=== PATIENT | female | born 1960 | race Caucasian/White ===

== ENCOUNTER → 2017-07-10 | Outpatient (CLI) | payer OTHER, SELFPAY ==
[~2017-07-10] MED LIST: (None)20 M1 PO; ALBU3IS INH; ALBU90OI6 INH; ALBU90OI61; ALBU90OI61 INH; AZIT500 PO; BUDE6HFA INH; CARV6.25 PO; CEFD300 PO; COLE625 PO; FLUSAL5005 IH; FOLI1 PO; FURO40 PO; GLIP5 PO; LOSA25 PO; METF500 PO; METPHE20CR; MONT10T PO; PRED10; PRED10 PO; SPIRIVA RESPIMAT4 G1; TIOT18 IH; TUDORZA PRESS400 MCG; Zithromax Tri-500 MG
[2017-07-10 10:43] LABS: BASOPHILS ABSOLUTE AUTO 0.07 K/mm3 (0.00-0.23); BASOPHILS PERCENT AUTO 1 % (0-2); EOSINOPHILS ABSOLUTE AUTO 0.24 K/mm3 (0.00-0.68); EOSINOPHILS PERCENT AUTO 3 % (0-6); Hemoglobin 12.6 g/dL (11.5-16.0); IMMATURE GRAN ABSOLUTE AUTO 0.05 K/mm3 (0.00-0.10); IMMATURE GRAN PERCENT AUTO 1 % (0-1); LYMPHOCYTES ABSOLUTE AUTO 1.34 K/mm3 (0.84-5.20); LYMPHOCYTES PERCENT AUTO 14 % (21-46); MONOCYTES PERCENT AUTO 6 % (4-13); Mean Corpuscular HGB 30.8 pg (26.0-34.0); Mean Corpuscular HGB Conc 34.1 g/dL (31.5-36.5); Mean Corpuscular Volume 91 fL (80-100); Mean Platelet Volume 10.5 fL (9.1-12.4); NEUTROPHILS ABSOLUTE AUTO 7.19 K/mm3 (1.96-9.15); NEUTROPHILS PERCENT AUTO 76 % (41-73); Platelet Count 219 K/mm3 (150-400); RDW Coefficient Variation 14.9 % (11.7-14.2); RDW Standard Deviation 48.7 fL (35.1-46.3); Red Blood Cell Count 4.09 M/mm3 (3.80-5.20); White Blood Cell Count 9.49 K/mm3 (4.00-11.30)
[2017-07-10 10:54] LABS: Anion Gap 11 mmol/L (6-16); Blood Urea Nitrogen 9 mg/dL (8-24); CO2, Blood 27 mmol/L (21-32); Calcium, Blood 9.6 mg/dL (8.5-10.1); Chloride, Blood 101 mmol/L (98-108); Creatinine, Blood 0.75 mg/dL (0.40-1.00); Glomerular Filtration Rate >60 (60-); Glucose, Blood 190 mg/dL (70-99); Potassium, Blood 3.9 mmol/L (3.5-5.5); Sodium, Blood 139 mmol/L (136-145)
== END | disposition home or self-care (01) ==
LOC: LAB EV 10:39
PROVIDERS: Physician Assistant Surgical
DX: R06.02 Shortness of breath (principal)
CPT/HCPCS: 80048; 83880; 85025

== ENCOUNTER 2017-11-07 20:20 | Inpatient (IN) | payer OTHER, SELFPAY ==
[~2017-11-07] VITALS: Ht 162.6 cm; Wt 102.5 kg
[~2017-11-07 20:20] MED LIST changes: -(None)20 M1 PO; -AZIT500 PO; -BUDE6HFA INH; -CARV6.25 PO; -FURO40 PO; -SPIRIVA RESPIMAT4 G1
[2017-11-07] MEDS ORDERED: BUDE6HFA INH (21:17)
[2017-11-07 21:41] LABS: BASOPHILS ABSOLUTE AUTO 0.04 K/mm3 (0.00-0.23); BASOPHILS PERCENT AUTO 0 % (0-2); EOSINOPHILS PERCENT AUTO 3 % (0-6); Hematocrit 35.2 % (33.0-51.0); IMMATURE GRAN ABSOLUTE AUTO 0.05 K/mm3 (0.00-0.10); IMMATURE GRAN PERCENT AUTO 0 % (0-1); LYMPHOCYTES ABSOLUTE AUTO 1.36 K/mm3 (0.84-5.20); LYMPHOCYTES PERCENT AUTO 12 % (21-46); MONOCYTES ABSOLUTE AUTO 0.87 K/mm3 (0.16-1.47); MONOCYTES PERCENT AUTO 8 % (4-13); Mean Corpuscular HGB 30.8 pg (26.0-34.0); Mean Corpuscular HGB Conc 34.1 g/dL (31.5-36.5); Mean Corpuscular Volume 91 fL (80-100); Mean Platelet Volume 10.4 fL (9.1-12.4); NEUTROPHILS ABSOLUTE AUTO 8.89 K/mm3 (1.96-9.15); NEUTROPHILS PERCENT AUTO 77 % (41-73); Platelet Count 224 K/mm3 (150-400); RDW Coefficient Variation 14.5 % (11.7-14.2); RDW Standard Deviation 47.7 fL (35.1-46.3); Red Blood Cell Count 3.89 M/mm3 (3.80-5.20); White Blood Cell Count 11.51 K/mm3 (4.00-11.30)
[2017-11-07 22:02] LABS: Alanine Aminotransfer (ALT/SGP 33 U/L (12-78); Albumin, Blood 3.4 g/dL (3.4-5.0); Albumin/Globulin Ratio 0.9 (0.8-1.8); Alk Phos 93 U/L (50-136); Anion Gap 9 mmol/L (6-16); Aspartate Aminotrans (AST/SGOT 14 U/L (12-37); Bilirubin, Total 0.3 mg/dL (0.1-1.0); Blood Urea Nitrogen 14 mg/dL (8-24); Bun/Creatinine Ratio 17.2 (12.0-20.0); CO2, Blood 26 mmol/L (21-32); Calcium, Blood 8.8 mg/dL (8.5-10.1); Chloride, Blood 105 mmol/L (98-108); Creatinine, Blood 0.82 mg/dL (0.40-1.00); Globulin, Blood 3.6 g/dL (2.2-4.0); Glomerular Filtration Rate >60 (60-); Glucose, Blood 190 mg/dL (70-99); Potassium, Blood 3.8 mmol/L (3.5-5.5); Sodium, Blood 140 mmol/L (136-145)
[2017-11-08] MEDS ORDERED: SPIRIVA RESPIMAT4 G1 (00:07)
[2017-11-08] MEDS ORDERED: FURO40 PO (00:08)
[2017-11-08 04:28] LABS: Hematocrit 35.5 % (33.0-51.0); Hemoglobin 11.9 g/dL (11.5-16.0); Mean Corpuscular HGB Conc 33.5 g/dL (31.5-36.5); Mean Corpuscular Volume 89 fL (80-100); Mean Platelet Volume 10.7 fL (9.1-12.4); Platelet Count 220 K/mm3 (150-400); RDW Coefficient Variation 14.3 % (11.7-14.2); RDW Standard Deviation 46.7 fL (35.1-46.3); Red Blood Cell Count 3.97 M/mm3 (3.80-5.20); White Blood Cell Count 11.46 K/mm3 (4.00-11.30)
[2017-11-08 04:46] LABS: Alanine Aminotransfer (ALT/SGP 34 U/L (12-78); Albumin, Blood 3.5 g/dL (3.4-5.0); Albumin/Globulin Ratio 0.9 (0.8-1.8); Alk Phos 98 U/L (50-136); Anion Gap 10 mmol/L (6-16); Aspartate Aminotrans (AST/SGOT 20 U/L (12-37); Bilirubin, Total 0.3 mg/dL (0.1-1.0); Blood Urea Nitrogen 15 mg/dL (8-24); Bun/Creatinine Ratio 23.5 (12.0-20.0); CO2, Blood 25 mmol/L (21-32); Calcium, Blood 8.7 mg/dL (8.5-10.1); Chloride, Blood 102 mmol/L (98-108); Creatinine, Blood 0.64 mg/dL (0.40-1.00); Glomerular Filtration Rate >60 (60-); Glucose, Blood 299 mg/dL (70-99); Potassium, Blood 4.4 mmol/L (3.5-5.5); Sodium, Blood 137 mmol/L (136-145); Total Protein, Blood 7.5 g/dL (6.4-8.2)
[2017-11-09] MEDS ORDERED: AZIT500 PO (12:53)
[2017-11-09] MEDS ORDERED: CEFD300 PO (12:54)
[2017-11-09] MEDS ORDERED: (None)20 M1 PO (12:55)
== END 2017-11-09 14:34 | disposition home or self-care (01) | DRG 189 ==
LOC: ER 20:20 → MEDS 22:28 → ENPENDDIS 11-09 12:00 → MEDS 11-09 14:34
PROVIDERS: Emergency Medicine; Internal Medicine
DX: J96.11 Chronic respiratory failure with hypoxia (principal); J18.9 Pneumonia, unspecified organism; K50.90 Crohn's disease, unspecified, without complications; I50.30 Unspecified diastolic (congestive) heart failure; I11.0 Hypertensive heart disease with heart failure; Z79.84 Long term (current) use of oral hypoglycemic drugs; Z87.891 Personal history of nicotine dependence; E78.5 Hyperlipidemia, unspecified; G47.33 Obstructive sleep apnea (adult) (pediatric); E11.65 Type 2 diabetes mellitus with hyperglycemia; T38.0X5A Adverse effect of glucocorticoids and synthetic analogues, initial encounter; Y92.239 Unspecified place in hospital as the place of occurrence of the external cause; J43.9 Emphysema, unspecified
CPT/HCPCS: 36415; 71046; 80053; 82947; 83605; 85025; 85027; 87070; 87077; 87205; 93005; 93010; 94640; 96365; 96367; 96375; 99285; J0456; J0696; J1100; J1650; J1815; J1956; J2930; J7030; J7050

== ENCOUNTER → 2021-07-05 | Outpatient (CLI) | payer MEDICARE, OTHER ==
[~2021-07-05] MED LIST changes: +(None)20 M1 PO; +AZIT500 PO; +BUDE6HFA INH; +CARV6.25 PO; +FURO40 PO; +SPIRIVA RESPIMAT4 G1
== END | disposition home or self-care (01) ==
LOC: LAB SHORT 10:20
PROVIDERS: Nurse Practitioner Family
DX: Z01.419 Encounter for gynecological examination (general) (routine) without abnormal findings (principal); L02.214 Cutaneous abscess of groin
CPT/HCPCS: 87070; 87075; 87077; 87147; 87186; 87205

== ENCOUNTER → 2022-04-27 | Outpatient (CLI) | payer MEDICARE, OTHER | END | disposition home or self-care (01) | LOC: LAB SHORT 13:30 | DX: L73.2 Hidradenitis suppurativa (principal) | CPT/HCPCS: 87070; 87075; 87077; 87186; 87205 ==

== ENCOUNTER 2024-01-29 14:56 | Inpatient (IN) | payer MEDICARE, OTHER ==
[~2024-01-29] VITALS: Ht 162.6 cm; Wt 89.4 kg
[~2024-01-29 14:56] MED LIST changes: -ALBU3IS INH; -BUDE6HFA INH; +GLIP10 PO; -GLIP5 PO; -METF500 PO; +METF500C PO; -SPIRIVA RESPIMAT4 G1
[2024-01-29 15:34] LABS: BASOPHILS ABSOLUTE AUTO 0.07 K/mm3 (0.00-0.23); BASOPHILS PERCENT AUTO 1 % (0-2); EOSINOPHILS ABSOLUTE AUTO 0.33 K/mm3 (0.00-0.68); EOSINOPHILS PERCENT AUTO 3 % (0-6); Hematocrit 37.2 % (33.0-51.0); Hemoglobin 12.5 g/dL (11.5-16.0); IMMATURE GRAN ABSOLUTE AUTO 0.05 K/mm3 (0.00-0.10); IMMATURE GRAN PERCENT AUTO 1 % (0-1); LYMPHOCYTES ABSOLUTE AUTO 1.43 K/mm3 (0.84-5.20); LYMPHOCYTES PERCENT AUTO 13 % (21-46); MONOCYTES ABSOLUTE AUTO 0.67 K/mm3 (0.16-1.47); MONOCYTES PERCENT AUTO 6 % (4-13); Mean Corpuscular HGB 29.1 pg (26.0-34.0); Mean Corpuscular HGB Conc 33.6 g/dL (31.5-36.5); Mean Corpuscular Volume 87 fL (80-100); Mean Platelet Volume 9.9 fL (9.1-12.4); NEUTROPHILS ABSOLUTE AUTO 8.29 K/mm3 (1.96-9.15); NEUTROPHILS PERCENT AUTO 77 % (41-73); Platelet Count 235 K/mm3 (150-400); Red Blood Cell Count 4.29 M/mm3 (3.80-5.20); White Blood Cell Count 10.84 K/mm3 (4.00-11.30)
[2024-01-29 15:56] LABS: Albumin, Blood 3.6 g/dL (3.4-5.0); Albumin/Globulin Ratio 1.1 (0.8-1.8); Bilirubin, Total 0.3 mg/dL (0.1-1.0); Bun/Creatinine Ratio 16.7 (12.0-20.0); Calcium, Blood 9.3 mg/dL (8.5-10.1); Creatinine, Blood 0.6 mg/dL (0.40-1.00); Globulin, Blood 3.4 g/dL (2.2-4.0); Potassium, Blood 4.1 mmol/L (3.5-5.5)
[2024-01-29] MEDS ORDERED: Ipratropium/Albuterol SulF 2.5-0.5MG/3 ML Amp INH ONE (16:45)
[2024-01-29] MEDS ORDERED: Albuterol 2.5 MG/3 ML VIAL INH SCH (16:45)
[2024-01-29] MEDS ORDERED: PredniSONE 20 MG Tab PO ONE (16:45)
[2024-01-29] MEDS ORDERED: CefTRIAXone Sodium 1,000 MG in NS 100 ML IV ONE (18:30)
[2024-01-29] MEDS ORDERED: Azithromycin 250 MG Tab PO ONE (18:30)
[2024-01-29] MEDS ORDERED: FLU VACC TS2024-25(6MOS UP)/PF 45 MCG/0.5 ML SYRINGE IM SCH (19:55)
[2024-01-29] MEDS ORDERED: Albuterol 2.5 MG/3 ML VIAL INH PRN (20:00)
[2024-01-29] MEDS ORDERED: NS 1,000 ML IV SCH (20:00)
[2024-01-29] MEDS ORDERED: Acetaminophen 325 MG TABLET PO PRN (20:00)
[2024-01-29] MEDS ORDERED: Ondansetron HCl 2 MG / ML 2ML Vial IV PRN (20:00)
[2024-01-29] MEDS ORDERED: Ipratropium/Albuterol SulF 2.5-0.5MG/3 ML Amp INH SCH (20:00)
[2024-01-29] MEDS ORDERED: Lactobacil 2-S.Thermo-Bifido 1 1 Cap PO SCH (21:00)
[2024-01-29] MEDS ORDERED: Montelukast Sodium 10 MG Tab PO SCH (21:00)
[2024-01-29] MEDS ORDERED: ATOR10 PO (21:02)
[2024-01-29 21:29] VITALS: BP 170/80
[2024-01-29] MEDS ORDERED: ROFLUMILAST250 MCG PO (21:40)
[2024-01-29] MEDS ORDERED: Hydroxyzine HCl50 MG PO (21:41)
[2024-01-29] MEDS ORDERED: BUPR150ER PO (21:42)
[2024-01-29] MEDS ORDERED: Carvedilol 6.25 MG Tab PO ONE (22:20)
[2024-01-29] MEDS ORDERED: HydrALAZINE HCl 25 MG Tab PO PRN (22:20)
--- NOTE | 2024-01-29 22:22 | NUR ---
ADMIT NOTE HANDOFF RECEIVED FROM CAMILLE TURNER. PT ARRIVED TO FLOOR VIA GURNEY. PT ORIENTED TO UNIT. CALL BUTTON WITHIN REACH. IV FLUIDS STARTED ORDERED. CALL PLACED TO HOSPITALIST AT PT'S REQUEST FOR HER NIGHT MEDS SHE DIDN'T GET TONIGHT. HTN MED APPROVED, AWAITING PHARMACY. PRN HTN MED ALSO ENTERED INTO EMAR WITH PARAMETERS.
[2024-01-30] MEDS ORDERED: MethylPREDNISolone Sod Succ 125 MG Vial IV SCH
--- NOTE | 2024-01-30 04:07 | NUR ---
SHIFT SUMMARY ADMITTED THIS SHIFT FOR COPD EXACERBATION. FULL CODE. PLAN IS FOR STEROIDS, ANTIB RX, IV FLUIDS. SHE IS A&O X4, STANDBY ASSIST- BRP. AC CBG'S - LOW SS. 4 LPM O2 @ BASELINE. NS INFUSING ORDERED. ADA DIET. RT TX'S GIVEN THIS SHIFT.
[2024-01-30 05:25] LABS: BASOPHILS ABSOLUTE AUTO 0.03 K/mm3 (0.00-0.23); BASOPHILS PERCENT AUTO 0 % (0-2); EOSINOPHILS ABSOLUTE AUTO 0.02 K/mm3 (0.00-0.68); EOSINOPHILS PERCENT AUTO 0 % (0-6); Hematocrit 35.9 % (33.0-51.0); Hemoglobin 12.1 g/dL (11.5-16.0); IMMATURE GRAN ABSOLUTE AUTO 0.05 K/mm3 (0.00-0.10); IMMATURE GRAN PERCENT AUTO 0 % (0-1); LYMPHOCYTES ABSOLUTE AUTO 0.64 K/mm3 (0.84-5.20); LYMPHOCYTES PERCENT AUTO 6 % (21-46); MONOCYTES ABSOLUTE AUTO 0.13 K/mm3 (0.16-1.47); MONOCYTES PERCENT AUTO 1 % (4-13); Mean Corpuscular HGB 28.7 pg (26.0-34.0); Mean Corpuscular HGB Conc 33.7 g/dL (31.5-36.5); Mean Corpuscular Volume 85 fL (80-100); Mean Platelet Volume 10.2 fL (9.1-12.4); NEUTROPHILS ABSOLUTE AUTO 10.52 K/mm3 (1.96-9.15); NEUTROPHILS PERCENT AUTO 92 % (41-73); Platelet Count 235 K/mm3 (150-400); RDW Coefficient Variation 14.6 % (11.7-14.2); RDW Standard Deviation 44.8 fL (35.1-46.3); Red Blood Cell Count 4.21 M/mm3 (3.80-5.20); White Blood Cell Count 11.39 K/mm3 (4.00-11.30)
[2024-01-30 05:57] LABS: Albumin, Blood 3.5 g/dL (3.4-5.0); Bilirubin, Total 0.4 mg/dL (0.1-1.0); Bun/Creatinine Ratio 21.8 (12.0-20.0); Calcium, Blood 8.8 mg/dL (8.5-10.1); Creatinine, Blood 0.64 mg/dL (0.40-1.00); Globulin, Blood 3.4 g/dL (2.2-4.0); Magnesium, Blood 1.4 mg/dL (1.6-2.4); Potassium, Blood 4.5 mmol/L (3.5-5.5); Total Protein, Blood 6.9 g/dL (6.4-8.2)
[2024-01-30 07:14] VITALS: BP 159/68
[2024-01-30] MEDS ORDERED: Insulin Human Lispro 100 Units/ML 3ML Syringe SC SCH ×2 (07:30→17:45)
[2024-01-30] MEDS ORDERED: Carvedilol 6.25 MG Tab PO SCH ×2 (08:00→09:00)
--- NOTE | 2024-01-30 08:47 | NUR ---
PT IS SITTING AT SIDE OF THE BED, 4L NC WHICH IS HER BASELINE, HARSH HACKING NOT PRODUCTIVE COUGH. INDEPENDENT IN THE ROOM. BED IS IN THE LOWEST POSITION WITH CALL LIGHT IN REACH.
[2024-01-30] MEDS ORDERED: Enoxaparin 40 MG/0.4 ML SYR SC SCH (09:00)
[2024-01-30] MEDS ORDERED: Losartan Potassium 25 MG Tab PO SCH (09:00)
[2024-01-30] MEDS ORDERED: Benzonatate 100 MG Cap PO PRN (11:50)
--- NOTE | 2024-01-30 11:51 | NUR ---
PK IS CURRENTLY DOWN, PER DR. CESAR, ORDER TESSALON 100 MG PO TID PRN FOR COUGH AND GUAIFENESIN 1200 MG PO BID.
[2024-01-30 15:50] VITALS: BP 151/94
[2024-01-30] MEDS ORDERED: ALBU90OI6 INH (15:52)
[2024-01-30] MEDS ORDERED: SYMBICORT 160-4.6 GM INH (15:52)
[2024-01-30] MEDS ORDERED: SPIRIVA RESPIMAT4 G3 INH (16:04)
--- NOTE | 2024-01-30 16:04 | NUR ---
NO ACUTE CHANGES THIS SHIFT. PT IS AT 4L NC WHICH IS HER BASELINE, SCHEDULED BREATHING TREATMENTS. RT AT BEDSIDE TO SET UP HOME CPAP. PT FAMILY AT BEDSIDE, PT IN GOOD SPIRITS. ALERT AND ORIENTED X4, INDEPENDENT IN THE ROOM. BLOOD SUGAR TREATED PER EMAR.
[2024-01-30] MEDS ORDERED: HUMIRA PEN40 MG/0.2 SC (16:18)
--- NOTE | 2024-01-30 17:36 | NUR ---
DR. CESAR NOTIFIED OF CBG 386, CHANGED SLIDING SCALE TO HIGH, D/C LOW SCALE.
[2024-01-30 19:21] VITALS: BP 144/68
[2024-01-30] MEDS ORDERED: GuaiFENesin 600 MG TabCR PO SCH (21:00)
[2024-01-30] MEDS ORDERED: Azithromycin 500 MG in NS 250 ML IV SCH (21:00)
[2024-01-30] MEDS ORDERED: NS 250 ML IV PRN (21:35)
[2024-01-30] MEDS ORDERED: Tiotropium Bromide 2.5 MCG/ACT MIST INHAL (10 ACT/4 GM) INH SCH (22:30)
[2024-01-30] MEDS ORDERED: HyDROXyzine HCl 25 MG Tab PO ONE (22:40)
[2024-01-30] MEDS ORDERED: buPROPion HCL 150 MG TAB.SR.12H PO ONE (22:40)
--- NOTE | 2024-01-30 23:43 | NUR ---
@ PT REPORTS THAT MANY OF HER HOME MEDICATIONS ARE NOT ADMINISTERED DURING HOSPITAL STAY. THIS OPERATIONS SYSTEMS SPECIALIST WENT THROUGH THE MED RECONCILIATION, DATES AND TIMES LAST TAKEN, AND DOSAGE. UPDATED THE MED REC. THIS OPERATIONS SYSTEMS SPECIALIST CALLED AND REQUESTED THE TWO INHALERS, METFORMIN 1G BID, HYDROXYZINE, AND WELLBUTRIN FROM [facility], ON-CALL HOSPITALIST. NEW ONE TIME ORDERS RECEIVED T-ORDER: HYDROXYZINE 50MG PO NOW, AND WELLBUTRIN 150MG SR PO NOW (ONE TIME ORDERS.) ENTERED TO [email or web address], SEE EMAR. ADMINISTERED ORDERED. PT EDUCATION PROVIDED. RT NOTIFIED.
[2024-01-30] MEDS ORDERED: Mometasone/Formoterol MDI 200/5 mcg 13 GM INH SCH (23:55)
[2024-01-31 02:48] VITALS: BP 131/67
--- NOTE | 2024-01-31 03:23 | NUR ---
SHIFT SUMMARY PT IS A&O X4,PLEASANT,COOPERATIVE WITH CARE. O2@6L VIA NASAL CANNULA. CONTINUOUS PULSE OX >94%, PT USING HOME CPAP DURING NOC. LS DIMINISHED, DRY HACKING COUGH, NO SPUTUM NOTED. RT TX PRN ADMINISTERED. O2 DESATTING WHEN PT UP INDEPENDENTLY TO BEDSIDE COMMODE, 7L BLEED WITH HOME CPAP. TESSALON OG PRN ADMINISTERED ORDERED. PT DENIES PAIN. IV ABX INFUSED ORDERED. MED REC RECOMPLETED DURING THE NIGHT HRS, PT C/O NOT HAVING MOST OF HER HOME MEDS ON EMAR. PER PT REPORT METFORMIN 1G BID. THIS STACKER CALLED ON-CALL HOSPITALIST.T-ORDER RECEIVED AND ONCE ORDER FOR WELLBUTRIN & HYDROXYZINE.(SEE PREVIOUS NOTE AND UPDATES ON EMAR.) NO ACUTE EVENTS DURING THIS SHIFT. BED AT THE LOWEST POSITION, CALL LIGHT WITHIN REACH. PT IS ABLE TO MAKE HER NEEDS KNOWN. PT REPORTS RESTING WELL DURING THE NIGHT HRS, D/T LACK OF SLEEP AND MULTIPLE VISITORS DURING PREVIOUS SHIFT.
[2024-01-31 07:23] VITALS: BP 140/76
[2024-01-31] MEDS ORDERED: Insulin Human Lispro 100 Units/ML 3ML Syringe SC SCH (07:30)
[2024-01-31] MEDS ORDERED: MetFORMIN HCl 500 mg PO SCH (08:00)
[2024-01-31] MEDS ORDERED: Atorvastatin 10 MG Tab PO SCH (09:00)
[2024-01-31] MEDS ORDERED: GlipiZIDE 10 MG Tab PO SCH (09:00)
[2024-01-31 16:47] VITALS: BP 143/66
--- NOTE | 2024-01-31 17:55 | NUR ---
SHIFT SUMMARY: PT A/O X4. PLEASANT AND COOPERATIVE WITH CARE. PT C/O "FEELING WEIRD" TWICE THIS SHIFT. PT DESCRIBED THE FEELING TINGLING/TIGHTEST IN THE CHEST THEN WOULD QUICKLY DISSIPATE. PT CURRENTLY ON 4L MAINTAINING SATS >90%. NEW IV PLACED IN LFA D/T RAC CAUSING TENDERNESS. INDEPENDENT IN ROOM. CALL LIGHT IN REACH. BED IN LOWEST POSITION.
[2024-01-31 19:25] VITALS: BP 136/69
[2024-01-31] MEDS ORDERED: Insulin Glargine-Yfgn 100 Unit/mL 3 ML SYR SC SCH (20:00)
[2024-01-31] MEDS ORDERED: buPROPion HCL 150 MG TAB.SR.12H PO SCH (21:00)
[2024-01-31] MEDS ORDERED: HyDROXyzine HCl 25 MG Tab PO SCH (21:00)
[2024-02-01 03:22] VITALS: BP 130/71
[2024-02-01 05:39] LABS: BASOPHILS ABSOLUTE AUTO 0.03 K/mm3 (0.00-0.23); BASOPHILS PERCENT AUTO 0 % (0-2); EOSINOPHILS PERCENT AUTO 0 % (0-6); Hematocrit 34.6 % (33.0-51.0); Hemoglobin 11.3 g/dL (11.5-16.0); IMMATURE GRAN ABSOLUTE AUTO 0.08 K/mm3 (0.00-0.10); IMMATURE GRAN PERCENT AUTO 1 % (0-1); LYMPHOCYTES ABSOLUTE AUTO 0.77 K/mm3 (0.84-5.20); LYMPHOCYTES PERCENT AUTO 6 % (21-46); MONOCYTES ABSOLUTE AUTO 0.32 K/mm3 (0.16-1.47); MONOCYTES PERCENT AUTO 3 % (4-13); Mean Corpuscular HGB 28.9 pg (26.0-34.0); Mean Corpuscular HGB Conc 32.7 g/dL (31.5-36.5); Mean Corpuscular Volume 89 fL (80-100); NEUTROPHILS ABSOLUTE AUTO 11.42 K/mm3 (1.96-9.15); NEUTROPHILS PERCENT AUTO 91 % (41-73); Platelet Count 243 K/mm3 (150-400); RDW Standard Deviation 47.8 fL (35.1-46.3); Red Blood Cell Count 3.91 M/mm3 (3.80-5.20); White Blood Cell Count 12.62 K/mm3 (4.00-11.30)
[2024-02-01 06:04] LABS: Albumin, Blood 3.2 g/dL (3.4-5.0); Bilirubin, Total 0.2 mg/dL (0.1-1.0); Calcium, Blood 9.5 mg/dL (8.5-10.1); Creatinine, Blood 0.78 mg/dL (0.40-1.00); Globulin, Blood 3.2 g/dL (2.2-4.0); Potassium, Blood 4.9 mmol/L (3.5-5.5); Total Protein, Blood 6.4 g/dL (6.4-8.2)
--- NOTE | 2024-02-01 06:07 | NUR ---
Patient alert and oriented x4, VSS, resting comfortably in bed. Patient wearing 4L oxygen via nasal cannula or CPAP with 7L oxygen via bleed-in; patient ambulating to restroom for needs independently. NS @ 75 restarted as per existing order, tolerating well to left forearm PIV.
[2024-02-01 07:35] VITALS: BP 141/63
[2024-02-01] MEDS ORDERED: Polyethylene Glycol 3350 17 gm PO SCH (14:00)
[2024-02-01 15:10] VITALS: BP 160/83
--- NOTE | 2024-02-01 18:16 | NUR ---
SHIFT SUMMARY PATIENT AMBULATING TO BATHROOM AND AROUND ROOM THIS SHIFT, DYSPNEA WITH EXERTION. CONTINUES ON 4 LITERS NC, MAINTAINING 02 SATS ADEQUATELY. A/0 X4. SMALL BOWEL MOVEMENT WITH SWAMP JUICE GIVEN, BOWEL CARE STARTED. NO C/O PAIN. ABLE TO MAKE NEEDS KNOWN. CALL LIGHT IN REACH, CARES ONGOING.
[2024-02-01 19:43] VITALS: BP 141/76
[2024-02-01] MEDS ORDERED: Docusate Sodium 100 MG Cap PO SCH (21:00)
[2024-02-02 04:04] VITALS: BP 124/61
--- NOTE | 2024-02-02 05:07 | NUR ---
SHIFT SUMMARY 63 YEAR OLD FEMALE ADMITTED FOR CIRRHOSIS. ON 4 L O2. NO BM YET. TOOK SHOWER LAST NIGHT. IV LEFT FA, C-PAP MACHINE ALERT AND ORIENTED TIMES 4. BLOOD SUGARS RUNNING IN THE LOW TO MID 300 S. PATIENT WAS RECEPTIVE TO CARE, INDEPENDANT AND ABLE TO AMBULATE TO RESTROOM. BED AT LOW POSITION, RAILS TIMES 2, CALL LIGHT WITHIN REACH.
[2024-02-02 05:08] LABS: BASOPHILS ABSOLUTE AUTO 0.04 K/mm3 (0.00-0.23); BASOPHILS PERCENT AUTO 0 % (0-2); EOSINOPHILS ABSOLUTE AUTO 0.12 K/mm3 (0.00-0.68); EOSINOPHILS PERCENT AUTO 1 % (0-6); Hematocrit 34.1 % (33.0-51.0); Hemoglobin 11.2 g/dL (11.5-16.0); IMMATURE GRAN ABSOLUTE AUTO 0.09 K/mm3 (0.00-0.10); IMMATURE GRAN PERCENT AUTO 1 % (0-1); LYMPHOCYTES ABSOLUTE AUTO 2.32 K/mm3 (0.84-5.20); LYMPHOCYTES PERCENT AUTO 21 % (21-46); MONOCYTES ABSOLUTE AUTO 0.74 K/mm3 (0.16-1.47); MONOCYTES PERCENT AUTO 7 % (4-13); Mean Corpuscular HGB Conc 32.8 g/dL (31.5-36.5); Mean Corpuscular Volume 88 fL (80-100); Mean Platelet Volume 10.1 fL (9.1-12.4); NEUTROPHILS ABSOLUTE AUTO 7.64 K/mm3 (1.96-9.15); NEUTROPHILS PERCENT AUTO 70 % (41-73); Platelet Count 215 K/mm3 (150-400); RDW Standard Deviation 48.1 fL (35.1-46.3); Red Blood Cell Count 3.86 M/mm3 (3.80-5.20); White Blood Cell Count 10.95 K/mm3 (4.00-11.30)
[2024-02-02 05:46] LABS: Albumin/Globulin Ratio 1.1 (0.8-1.8); Bilirubin, Total 0.2 mg/dL (0.1-1.0); Bun/Creatinine Ratio 35.8 (12.0-20.0); Calcium, Blood 9.9 mg/dL (8.5-10.1); Creatinine, Blood 0.67 mg/dL (0.40-1.00); Globulin, Blood 2.8 g/dL (2.2-4.0); Potassium, Blood 4.2 mmol/L (3.5-5.5); Total Protein, Blood 5.8 g/dL (6.4-8.2)
[2024-02-02 08:01] VITALS: BP 128/67
[2024-02-02] MEDS ORDERED: GUAI600T33 PO (15:47)
[2024-02-02] MEDS ORDERED: BASAGLAR K100 UNIT/3 SC (15:49)
[2024-02-02] MEDS ORDERED: HUMALOG KW100 UNIT/1 SC (15:50)
[2024-02-02] MEDS ORDERED: PRED20 PO (15:53)
[2024-02-02] MEDS ORDERED: AZIT500 PO (15:53)
[2024-02-02] MEDS ORDERED: Diflucan100 MG PO (15:54)
--- NOTE | 2024-02-02 17:00 | NUR ---
DISCHARGE SUMMARY PATIENT DISCHARGED THIS SHIFT ON 4 LITERS NC AT BASELINE, DYSPNEA BETTER BUT STILL PRESENT. A/OX4. IV REMOVED PRIOR WITHOUT COMPLICATION. DISCHARGE PACKET GIVEN AND REVIEWED, VERBALIZED UNDERSTANDING. INHALERS SENT HOME WITH PATIENT.
== END 2024-02-02 16:16 | disposition home or self-care (01) | DRG 189 ==
LOC: ER 14:56 → MEDS 14:57
PROVIDERS: Emergency Medicine; Internal Medicine; Nurse Practitioner Acute Care; ADMIT Internal Medicine
DX: J96.21 Acute and chronic respiratory failure with hypoxia (principal); J43.9 Emphysema, unspecified; E11.65 Type 2 diabetes mellitus with hyperglycemia; G47.33 Obstructive sleep apnea (adult) (pediatric); E11.9 Type 2 diabetes mellitus without complications; T38.0X5A Adverse effect of glucocorticoids and synthetic analogues, initial encounter; I10 Essential (primary) hypertension; B37.9 Candidiasis, unspecified; Z87.01 Personal history of pneumonia (recurrent); Z88.1 Allergy status to other antibiotic agents; Z87.891 Personal history of nicotine dependence
CPT/HCPCS: 36415; 71046; 80053; 82947; 83735; 84484; 85025; 93005; 93010; 94640; 94645; 94660; 94664; 94762; 96365; 96372; 96375; 96376; 99285-25; A9270; G0378; J0456; J0696; J1650; J1815; J2405; J2919; J7030; J7050; J7512

== ENCOUNTER → 2024-07-21 | Outpatient (CLI) | payer MEDICARE, OTHER ==
[~2024-07-21] MED LIST changes: +ATOR10 PO; +BASAGLAR K100 UNIT/3 SC; +BUPR150ER PO; +Diflucan100 MG PO; +GUAI600T33 PO; +HUMALOG KW100 UNIT/1 SC; +HUMIRA PEN40 MG/0.2 SC; +Hydroxyzine HCl50 MG PO; +PRED20 PO; +ROFLUMILAST250 MCG PO; +SPIRIVA RESPIMAT4 G3 INH; +SYMBICORT 160-4.6 GM INH
== END ==
LOC: LAB 12:49 → LAB SHORT 12:49
DX: L08.9 Local infection of the skin and subcutaneous tissue, unspecified (principal); L73.2 Hidradenitis suppurativa
CPT/HCPCS: 87070; 87077; 87147; 87186; 87205

== ENCOUNTER 2024-09-30 13:02 | Emergency (ER) | payer MEDICARE, OTHER ==
[~2024-09-30] VITALS: Ht 162.6 cm; Wt 88.9 kg
[2024-09-30] MEDS ORDERED: MethylPREDNISolone Sod Succ 125 MG Vial IV ONE (14:05)
[2024-09-30] MEDS ORDERED: Albuterol 2.5 MG/3 ML VIAL INH SCH (14:05)
[2024-09-30 14:24] LABS: BASOPHILS ABSOLUTE AUTO 0.09 K/mm3 (0.00-0.23); BASOPHILS PERCENT AUTO 1 % (0-2); EOSINOPHILS ABSOLUTE AUTO 0.27 K/mm3 (0.00-0.68); EOSINOPHILS PERCENT AUTO 2 % (0-6); Hematocrit 41.3 % (33.0-51.0); Hemoglobin 13.6 g/dL (11.5-16.0); IMMATURE GRAN ABSOLUTE AUTO 0.07 K/mm3 (0.00-0.10); IMMATURE GRAN PERCENT AUTO 1 % (0-1); LYMPHOCYTES ABSOLUTE AUTO 1.73 K/mm3 (0.84-5.20); LYMPHOCYTES PERCENT AUTO 15 % (21-46); MONOCYTES ABSOLUTE AUTO 0.74 K/mm3 (0.16-1.47); MONOCYTES PERCENT AUTO 6 % (4-13); Mean Corpuscular HGB 27.8 pg (26.0-34.0); Mean Corpuscular HGB Conc 32.9 g/dL (31.5-36.5); Mean Corpuscular Volume 85 fL (80-100); Mean Platelet Volume 10.3 fL (9.1-12.4); NEUTROPHILS ABSOLUTE AUTO 8.69 K/mm3 (1.96-9.15); NEUTROPHILS PERCENT AUTO 75 % (41-73); Platelet Count 276 K/mm3 (150-400); RDW Coefficient Variation 14.6 % (11.7-14.2); RDW Standard Deviation 44.6 fL (35.1-46.3); Red Blood Cell Count 4.89 M/mm3 (3.80-5.20); White Blood Cell Count 11.59 K/mm3 (4.00-11.30)
[2024-09-30 14:46] LABS: Influenza A, PCR NEGATIVE (NEGATIVE); Influenza B, PCR NEGATIVE (NEGATIVE); Resp Syncytial Virus, PCR NEGATIVE (NEGATIVE); SARS-Cov-2 (COVID-19) PCR, MMC NEGATIVE (NEGATIVE)
[2024-09-30 14:53] LABS: Albumin, Blood 3.8 g/dL (3.4-5.0); Bilirubin, Total 0.3 mg/dL (0.1-1.0); Bun/Creatinine Ratio 19.8 (12.0-20.0); Calcium, Blood 8.7 mg/dL (8.5-10.1); Creatinine, Blood 0.76 mg/dL (0.40-1.00); Globulin, Blood 3.9 g/dL (2.2-4.0); Potassium, Blood 3.9 mmol/L (3.5-5.5); Total Protein, Blood 7.7 g/dL (6.4-8.2)
[2024-09-30 15:40] VITALS: BP 148/70
== END 2024-09-30 15:40 | disposition home or self-care (01) ==
LOC: ER 13:02
PROVIDERS: Physician Assistant
DX: J44.1 Chronic obstructive pulmonary disease with (acute) exacerbation (principal); I10 Essential (primary) hypertension; E11.9 Type 2 diabetes mellitus without complications; E78.5 Hyperlipidemia, unspecified; F17.200 Nicotine dependence, unspecified, uncomplicated; Z99.81 Dependence on supplemental oxygen; Z88.8 Allergy status to other drugs, medicaments and biological substances; Z88.1 Allergy status to other antibiotic agents; Z79.84 Long term (current) use of oral hypoglycemic drugs; Z79.51 Long term (current) use of inhaled steroids; Z79.4 Long term (current) use of insulin; Z79.52 Long term (current) use of systemic steroids; Z79.899 Other long term (current) drug therapy
CPT/HCPCS: 0241U; 71046; 80053; 84484; 85025; 93005; 93010; 94644; 94664; 96374; 99285-25; J2919